=== PATIENT | female | born 1995 | race Two or more races ===

== ENCOUNTER 2016-12-04 17:54 | Emergency (ER) | payer BC, OTHER ==
--- NOTE | ~2016-12-04 | ER ---
PATIENT'S NAME: REGLA TAVAREZ [facility] AGE: 21 Y [address] ROOM: [place] [id number] LOCATION: ED ADMIT DATE: 12/04/2016 ER/Outpatient Report DISCHARGE DATE: 12/04/2016 FAMILY PHYSICIAN: Clint Dick MD ATTENDING PHYSICIAN: Erik Dhillon Time of Patient's Arrival: 1754 hours. Time of Patient's Evaluation: 1805 hours. CHIEF COMPLAINT: Severe abdominal pain. HISTORY OF PRESENT ILLNESS: This is a 21-year-old female who presents to the ER, who states that she is having some abdominal pain for the past 2 or 3 hours. She states she felt fine earlier this morning, she ate breakfast, and then this afternoon, she ate [employer] and shortly after developed this midepigastric and right upper quadrant abdominal pain. She has had no nausea or vomiting, no fever, no troubles with urination. She describes her pain as sharp in nature and occasionally shoots back around to her right side and into her back. She denies any other problems at this time. ALLERGIES: NO KNOWN ALLERGIES. MEDICATIONS: Please see medication list in nurse's notes. PAST MEDICAL HISTORY: Headaches and history of left breast biopsy. SOCIAL HISTORY: Denies smoking, drug, or alcohol use. REVIEW OF SYSTEMS: A 10-point review of systems was completed and was negative with the exception of those discussed in the HPI. PHYSICAL EXAMINATION: VITAL SIGNS: Weight 71.4 kg taken, blood pressure is 108/78, pulse 99, respirations 24, temperature 97.1 degrees tympanically, and saturations 98% on room air. Ollie Coma Score is 15. GENERAL: Alert, anxious, obese female, in moderate distress. HEENT: Head: Normocephalic. Eyes: Pupils are equal and reactive to light. LUNGS: Clear to auscultation bilaterally. No wheezes or crackles. Normal [facility] 21 [facility] [address] ROOM: [place], [place] [address] LOCATION: ED ADMIT DATE: 12/04/2016 ER/Outpatient Report DISCHARGE DATE: 12/04/2016 FAMILY PHYSICIAN: Clint Dick MD ATTENDING PHYSICIAN: Erik Dhillon respiratory effort. HEART: Regular rate and rhythm. No lifts, thrills, or murmurs. ABDOMEN: Soft. It is tender with palpation in the midepigastric region and right upper quadrant. She has good bowel sounds throughout. No masses are palpated. EXTREMITIES: No clubbing, cyanosis, or edema. She does have full range of motion of all limbs. LABORATORY DATA: CBC: White count is 12.3, hemoglobin is 13.8, platelets 313, and ANC is 8.1. CMS: Potassium is 3.3, glucose is 126, otherwise unremarkable. Amylase 64, lipase 237. H. pylori was negative. Ultrasound of the right upper quadrant was negative and reported by Radiology. IMPRESSION: Midepigastric and right upper quadrant abdominal pain. ASSESSMENT AND PLAN: We did start an IV and did give her fentanyl for her pain, 4 mg of Zofran, and the patient's symptoms did improve. We will dismiss the patient to home. I advised her to eat a low-fat foods, push fluids, monitor symptoms closely, and we will have her follow up with primary care physician for followup care. I also prescribed her some [place] to use as needed for any severe pain. The patient understands and agrees with care. AALIYAH ELIZALDE PA-C FOR MD ELISHA WILHELM/lacy /[id number] d: 12/05/16 0156 t: 12/05/16 1739, OUTPATIENT REPORT
[2016-12-04 18:38] LABS: BASOPHIL # 0.1 K/uL (0.0-0.2); BASOPHIL % 0.8 %; EOSINOPHIL # 0.1 K/uL (0.0-0.5); EOSINOPHIL % 0.9 %; HEMATOCRIT 39.9 % (33.0-46.0); HEMOGLOBIN 13.8 g/dL (11.0-15.0); IMMATURE GRANULOCYTE # 0.1 K/uL (0.0-0.3); IMMATURE GRANULOCYTE % 0.5 %; LYMPHOCYTE # 3.1 K/uL (0.8-4.0); LYMPHOCYTE % 24.9 %; MCH 30.5 pg (27.0-34.0); MCHC 34.6 gm/dL (32.0-36.5); MCV 88.3 fl (83.0-98.0); MONOCYTE # 0.9 K/uL (0.0-1.0); MONOCYTE % 6.9 %; NEUTROPHIL # (ANC) 8.1 K/uL (1.8-7.8); NRBC % 0 /100WBC (0-0.00); PLATELET COUNT 313 K/uL (150-450); RBC 4.52 M/uL (3.50-5.00); RDW-CV 11.9 % (11.9-14.6); WBC 12.3 K/uL (4.0-11.0)
[2016-12-04 18:56] LABS: ALBUMIN 3.9 gm/dL (3.5-5.0); ALK PHOS 61 IU/L (33-138); ALT 44 IU/L (12-78); ANION GAP 11.3 (10.0-19.0); AST 25 IU/L (10-40); BLOOD UREA NITROGEN 8 mg/dL (6-24); CALCIUM 8.8 mg/dL (8.5-10.5); CHLORIDE 108 mMol/L (96-110); CO2 25 mMol/L (22-32); CREATININE 0.7 mg/dL (0.5-1.1); ESTIMATED GFR (MDRD EQUATION) > 60; POTASSIUM 3.3 mMol/L (3.7-5.1); SODIUM 141 mMol/L (135-145); TOTAL BILIRUBIN 0.3 mg/dL (0.0-1.5); TOTAL PROTEIN 7.7 g/dL (6.0-8.4)
== END 2016-12-04 20:03 | disposition disaster alternative care site (69) ==
LOC: GMED 17:54
PROVIDERS: Emergency Medicine
DX: R10.13 Epigastric pain (principal); R10.11 Right upper quadrant pain; Z98.890 Other specified postprocedural states
CPT/HCPCS: J2405; J3010